=== PATIENT | female | born 1960 | race Two or more races ===

== ENCOUNTER → 2020-04-11 | Outpatient (CLI) | payer MEDICAID, SELFPAY ==
[2020-04-17 18:23] LABS: HPV APTIMA, High Risk Negative (Negative)
== END | disposition home or self-care (01) ==
LOC: LABSPEC 11:04
PROVIDERS: Visit Provider Obstetrics & Gynecology
DX: Z12.4 Encounter for screening for malignant neoplasm of cervix (principal)
CPT/HCPCS: 87624; 88175; G0145